=== PATIENT | male | born 1955 | race Caucasian/White ===

== ENCOUNTER → 2024-06-23 14:15 | Outpatient (REF) | payer MEDICARE, OTHER, SELFPAY | LOC: DHSLP 14:15 | PROVIDERS: ATTENDING PHYSICIAN Physician Assistant; FAMILY PHYSICIAN Family Medicine | DX: G47.33 Obstructive sleep apnea (adult) (pediatric) (principal) | CPT/HCPCS: 95800 ==

== ENCOUNTER 2025-01-04 06:15 | Day surgery (SDC) | payer MEDICARE, OTHER, SELFPAY ==
[2025-01-04 08:15] LABS: Glucose - Point of Care 96 mg/dl (70-99)
== END 2025-01-04 10:03 | disposition home or self-care (01) ==
LOC: GI 06:15
PROVIDERS: ATTENDING PHYSICIAN Specialist
DX: Z12.11 Encounter for screening for malignant neoplasm of colon (principal); K57.30 Diverticulosis of large intestine without perforation or abscess without bleeding; K31.7 Polyp of stomach and duodenum; K31.89 Other diseases of stomach and duodenum; Z86.0101 Personal history of adenomatous and serrated colon polyps
CPT/HCPCS: 43239; G0105; 88305; 82962; 88342